=== PATIENT | female | born 1990 | race African-American/Black ===

== ENCOUNTER 2017-04-10 06:57 | Emergency (ER) | payer OTHER, MEDICARE, MEDICAID ==
[~2017-04-10 06:57] MED LIST: ABILIFY2 MG; ABILIFY2 MG PO; ABILIFY20 M1 PO; ABILIFY20 MG PO; ABILIFY5 MG PO; ACETAMINOPHEN-CO5 M1 PO; ACETAMINOPHEN325 M2 PO; ACETAMINOPHEN650 M4 PO; ADDERALL 10 MG10 M2 PO; ADDERALL 5 MG TA5 MG PO; ADDERALL PO; ALBUTEROL0.83 MG/ML INH; ALBUTEROL17 GM; ALBUTEROL17 GM INH; ALLERGY RELIEF10 M2 PO; ARICEPT5 MG PO; ASTELIN137 MCG; ASTELIN137 MCG NS; AUGMENTIN PEG; CENTANY AT1 EACH TP; CEPHALEXIN250 MG/5 M PO; CIPRO500 MG/51 GT; CLARITIN10 M8 PO; CLEOCIN; CLEOCIN PA75 MG/5 M1 PO; COMBIVENT INH14.7 GM; COMBIVENT INH14.7 GM IH; COMBIVENT1 PUFF INH; DEXAMETHASONE 0.1% RIGHT EAR; DIASTAT RC; DULCOLAX10 MG PR; E E S PO; ERYTHROMYCIN GT; ESTRACE0.5 M2 PO; FLOVENT HFA12 GM; FLOVENT HFA12 GM IH; FLOXIN OTIC5 M1 RIGHT EAR; HYDROCODON-ACET15 M1 PEG; HYDROCODONE-ACET5 M2 PO; HYDROCODONE/TYLENOL PO; HYDROXYZINE HCL50 MG; HYDROXYZINE HCL50 MG PO; IBUPROFEN400 M1 PO; LORATADINE5 MG/5 M3 PO; MIRALAX17 G2 PO; MIRALAX17 GM PO; MOTRIN IB200 M1 PO; NYSTATIN100000 UNI PO; OMNICEF250 MG/5 M PO; PEDIATRIC ENEMA66 ML PR; RIVASTIGMINE; RIVASTIGMINE PO; TRIAMCINOLONE A15 G2 EXT; TYLENOL325 M2 PO; VENTOLIN HFA18 G1 IH; ZOFRAN4 M2 PO; ZOFRAN4 MG/2 M1 GB; ZOFRAN8 MG PO; [UNRECOGNIZED DRUG - OTHER]; [UNRECOGNIZED DRUG - OTHER] PO; [UNRECOGNIZED DRUG - OTHER] PO
[2017-04-10] MEDS ORDERED: MELATIN3 MG PO (07:47)
[2017-04-10 08:05] LABS: BASO ABSOLUTE COUNT 0.1 tho/cmm (0.0-0.2); EOS % 1.8 % (0-7); EOSINOPHIL ABSOLUTE COUNT 0.1 tho/cmm (0.0-0.7); HGB-HEMOGLOBIN 11.9 gm/dl (12.0-15.5); IMMATURE GRANULOCYTES ABSOLUTE 0.02 tho/cmm (0-0.03); IMMATURE GRANULOCYTES PERCENT 0.4 % (0-0.3); LYMPH % 33.5 % (20-45); LYMPH ABSOLUTE COUNT 1.7 tho/cmm (0.8-4.5); MCH (MEAN CORPUSCULAR HGB) 27.9 pg (28.0-32.0); MCHC MEAN CORPUSCULAR HGB CONC 32.2 % (32.0-36.0); MCV (MEAN CELL VOLUME) 86.9 fl (82.0-96.0); MEAN PLATELET VOLUME 13.1 cmc (9.4-12.4); MONO % 7.5 % (0-12); MONOCYTE ABSOLUTE COUNT 0.4 tho/cmm (0.0-1.2); NEUTROPHIL ABSOLUTE COUNT 2.8 tho/cmm (1.6-8.0); NEUTROPHIL-AUTOMATED 2.8 tho/cmm (1.6-8.0); NEUTROPHILS % 55.8 % (40-80); PLATELET COUNT 141 tho/cmm (150-450); RED BLOOD COUNT 4.26 mil/cmm (4.00-5.20); RED CELL DISTRIBUTION WIDTH 13.1 % (12.4-16.4); WHITE BLOOD COUNT 4.9 tho/cmm (4.0-10.0)
[2017-04-10 08:23] LABS: ALB/GLOB RATIO 1.1 (0.8-2.0); ALBUMIN 3.7 g/dl (3.5-5.0); ALKALINE PHOSPHATASE 59 U/L (33-138); ALT/SGPT 19 U/L (12-78); ANION GAP 12 mmol/L (0-20); AST/SGOT 21 U/L (10-40); BILIRUBIN,DIRECT <0.1 mg/dl (0.0-0.3); BILIRUBIN,INDIRECT 0.2 mg/dL (0.0-1.0); BILIRUBIN,TOTAL 0.3 mg/dl (0-1.5); BLOOD UREA NITROGEN 13 mg/dl (6-24); CALCIUM 8.2 mg/dl (8.5-10.5); CARBON DIOXIDE-VENOUS 27 mmol/L (22-32); CHLORIDE 108 mmol/l (96-110); CREATININE 0.75 mg/dl (0.50-1.10); GLUCOSE 96 mg/dL (70-110); POTASSIUM 3.8 mmol/L (3.7-5.1); SODIUM 143 mmol/L (135-145); eGFR VALUE FOR BLACK >90 mL/Min
[2017-04-10] MEDS ORDERED: KEPPRA250 M1 PO (09:46)
== END 2017-04-10 10:04 ==
LOC: EDMED → EDBD 06:57 → EDMED 10:04
PROVIDERS: Emergency Medicine
DX: R56.9 Unspecified convulsions (principal)
CPT/HCPCS: J2405